=== PATIENT | female | born 1990 ===

== ENCOUNTER 2017-09-23 13:48 | Emergency (ER) | payer SELFPAY ==
[2017-09-23 13:54] VITALS: BMI 23.0
[2017-09-23] MEDS ORDERED: Sodium Chloride 0.9% 1,000 ML IV STA ×2 (14:09→15:53)
--- NOTE | 2017-09-23 14:09 | ED PDOC ---
Arrival/HPI - General Chief Complaint: GI Problem Time Seen by Provider: 09/23/17 13:56 Historian: Patient - History of Present Illness Narrative History of Present Illness (Text): 09/23/17 14:05 27 y/o female, pmh including UTI, nkda, c/o nausea and vomiting started today. Pt. stated that she been having nausea on and off for long time which is chronic for her, started to vomit this morning with 3-4 episodes, no recent traveling, no abdominal or pelvic pain, no rash, no numbness or tingling, no change in vision, no numbness or tingling, no other medical or psychological complaints. Past Medical History - Provider Review Nursing Documentation Reviewed: Yes - Infectious Disease Hx of Infectious Diseases: None - Psychiatric Hx Substance Use: No - Surgical History Hx Section: Yes (x1) - Anesthesia Hx Anesthesia: Yes Hx Anesthesia Reactions: No Hx Malignant Hyperthermia: No - Suicidal Assessment Feels Threatened In Home Enviroment: No Family/Social History - Physician Review Nursing Documentation Reviewed: Yes Family/Social History: Unknown Family HX Smoking Status: Never Smoked Hx Alcohol Use: Yes Frequency of alcohol use: Socially Hx Substance Use: No Allergies/Home Meds Allergies/Adverse Reactions: Allergies No Known Allergies Allergy (Verified 12/28/14 19:32) Review of Systems - Review of Systems Constitutional: absent: Fatigue, Fevers Eyes: absent: Vision Changes ENT: absent: Hearing Changes Respiratory: absent: SOB, Cough Cardiovascular: absent: Chest Pain Gastrointestinal: absent: Abdominal Pain, Nausea, Vomiting Skin: absent: Rash, Pruritis Neurological: absent: Headache, Dizziness Psychiatric: absent: Anxiety, Depression, Suicidal Ideation Physical Exam Vital Signs Reviewed: Yes Vital Signs Temp Pulse Resp BP Pulse Ox 09/23/17 16:52 80 16 103/62 100 09/23/17 14:47 97.8 F 89 14 134/58 L 99 Temperature: Afebrile Blood Pressure: Normal Pulse: Regular Respiratory Rate: Normal Appearance: Positive for: Well-Appearing, Non-Toxic, Comfortable Pain Distress: None Mental Status: Positive for: Alert and Oriented X 3 - Systems Exam Head: Present: Atraumatic, Normocephalic Pupils: Present: PERRL Extroacular Muscles: Present: EOMI Conjunctiva: Present: Normal Mouth: Present: Moist Mucous Membranes Neck: Present: Normal Range of Motion Respiratory/Chest: Present: Clear to Auscultation, Good Air Exchange. No: Respiratory Distress, Accessory Muscle Use Cardiovascular: Present: Regular Rate and Rhythm, Normal S1, S2. No: Murmurs Abdomen: Present: Normal Bowel Sounds, Other (negative gallardo). No: Tenderness , Distention, Peritoneal Signs, Rebound, Guarding Back: Present: Normal Inspection. No: CVA Tenderness, Midline Tenderness, Paraspinal Tenderness, Pain with Leg Raise, Decubitus Ulcer Upper Extremity: Present: Normal Inspection. No: Cyanosis, Edema Lower Extremity: Present: Normal Inspection. No: Edema Neurological: Present: GCS=15, CN II-XII Intact, Speech Normal, Motor Func Grossly Intact, Gait Normal, Memory Normal Skin: Present: Warm, Dry, Normal Color. No: Rashes Psychiatric: Present: Alert, Oriented x 3, Normal Insight, Normal Concentration Medical Decision Making ED Course and Treatment: 09/23/17 14:14 -labs/lipase -IVF/pepcid/reglan -observe and reassess 09/23/17 18:14 -Beta hcg is negative -Labs are non-significant except wbc 15.8 from 18 (afebrile), Pt. received 2L of IVF. -UA show +wbc noted, will treat with IV rocephin. -CT abdomen and pelvis show Slight heterogeneous enhancement of the kidneys. Correlate clinically for pyelonephritis. Prominent mesenteric lymph nodes may represent mesenteric adenitis in appropriate clinical setting. No CT evidence of cholecystitis pancreatitis or appendicitis. -Pt. is drinking and eating, no nausea or vomiting, no pain. -Case discussed with Dr. Daniels with labs/radiology/treatments explained and he suggest outpatient oral antibiotic -Pt. has no cva tenderness, will give keflex and follow up on the urine culture. I advised the patient to repeat the CBC with the pmd in 3 days and patient verbally expressed understanding. -Discharge home with keflex, pepcid, zofran, stay hyrated, bed rest, follow up with your own pmd and urologist/GI within 2 days, return to the ER for any new or worsening signs or symptoms. - Lab Interpretations Lab Results: 09/23/17 17:11 09/23/17 14:10 Lab Results 09/23/17 17:30: Urine Opiates Screen Negative, Urine Methadone Screen Negative, Ur Barbiturates Screen Negative, Ur Phencyclidine Scrn Negative, Ur Amphetamines Screen Negative, U Benzodiazepines Scrn Negative, U Oth Cocaine Metabols Negative, U Cannabinoids Screen Negative 09/23/17 17:30: Urine Color Yellow, Urine Appearance Sl cloudy, Urine pH 6.5, Ur Specific [place] 1.025, Urine Protein 30 H, Urine Glucose (UA) Negative, Urine Ketones Trace H, Urine Blood Negative, Urine Nitrate Negative, Urine Bilirubin Negative, Urine Urobilinogen 0.2, Ur Leukocyte Esterase Negative, Urine RBC Negative, Urine WBC 5 - 10, Ur Epithelial Cells Many, Urine Bacteria Many 09/23/17 17:11: WBC 15.8 H, RBC 4.35, Hgb 12.1, Hct 36.6, MCV 84.1, MCH 27.8, MCHC 33.1, RDW 13.3, Plt Count 265, MPV 10.2, Gran % 90.1 H, Lymph % (Auto) 4.4 L, [place] % (Auto) 5.3, Eos % (Auto) 0.1 L, Baso % (Auto) 0.1, Gran # 14.21 H, Lymph # (Auto) 0.7 L, [place] # (Auto) 0.8 H, Eos # (Auto) 0.0, Baso # (Auto) 0.01 , Neutrophils % (Manual) 89 H, Band Neutrophils % 2, Lymphocytes % (Manual) 7 L , Atypical Lymphs % 1 H, Monocytes % (Manual) 1, Platelet Evaluation Normal 09/23/17 14:10: Influenza Typ A,B (EIA) Negative for flu a/b 09/23/17 14:10: WBC 18.0 H, RBC 4.96, Hgb 13.8, Hct 41.9, MCV 84.5, MCH 27.8, MCHC 32.9, RDW 13.5, Plt Count 312, MPV 10.5, Gran % 88.4 H, Lymph % (Auto) 5.5 L, [place] % (Auto) 5.7, Eos % (Auto) 0.2 L, Baso % (Auto) 0.2, Gran # 15.89 H, Lymph # (Auto) 1.0 L, [place] # (Auto) 1.0 H, Eos # (Auto) 0.0, Baso # (Auto) 0.03 09/23/17 14:10: Beta HCG, Quant < 2.39 09/23/17 14:10: Sodium 144, Potassium 4.2, Chloride 104, Carbon Dioxide 24, Anion Gap 20, BUN 13, Creatinine 0.7, Est GFR ( Amer) > 60, Est GFR (Non- Af Amer) > 60, Random Glucose 104, Calcium 9.9, Magnesium 1.8, Total Bilirubin 0.3, AST 37 H, ALT 32, Alkaline Phosphatase 85, Total Protein 8.6 H, Albumin 4.9 H, Globulin 3.7, Albumin/Globulin Ratio 1.3, Lipase 63 - RAD Interpretation Radiology Orders: 09/23/17 14:53 ABDOMEN & PELVIS [ABD & PELVIS IV CONTRAST ONLY] [CT] Stat LOWER THORAX: Unremarkable. LIVER: Unremarkable. No gross lesion or ductal dilatation. GALLBLADDER AND BILE DUCTS: Unremarkable. PANCREAS: Unremarkable. No gross lesion or ductal dilatation. SPLEEN: Unremarkable. ADRENALS: Unremarkable. No mass. KIDNEYS AND URETERS: Patchy enhancement of the kidneys noted. Correlate clinically for pyelonephritis or infectious process. No evidence of hydronephrosis or hydroureter. VASCULATURE: Unremarkable. No aortic aneurysm. BOWEL: Unremarkable. No obstruction. No gross mural thickening. APPENDIX: Normal appendix. PERITONEUM: Unremarkable. No free fluid. No free air. LYMPH NODES: Slightly prominent mesenteric lymph nodes noted. No evidence of retroperitoneal lymphadenopathy. BLADDER: The urinary bladder is not distended. REPRODUCTIVE: The uterus is slightly prominent in size. There is IUD in place. BONES: No acute fracture. OTHER FINDINGS: Midline diastases recti noted at the level of the umbilicus. IMPRESSION: Slight heterogeneous enhancement of the kidneys. Correlate clinically for pyelonephritis. Prominent mesenteric lymph nodes may represent mesenteric adenitis in appropriate clinical setting. No CT evidence of cholecystitis pancreatitis or appendicitis. Concrete Paver: Radiologist - Medication Orders Current Medication Orders: Ceftriaxone Sodium (Rocephin 1 Gram Ivpb) 1 gm in 100 mls @ 200 mls/hr IVPB STAT STA PRN Reason: Protocol Stop: 09/23/17 18:32 Discontinued Medications Famotidine (Pepcid) 20 mg IVP STAT STA Stop: 09/23/17 14:10 Last Admin: 09/23/17 16:10 Dose: 20 mg IVP Administration Document 09/23/17 16:10 OCS (Rec: 09/23/17 16:10 OCS [id number]) Charges for Administration # of IVP Administrations 1 Sodium Chloride (Sodium Chloride 0.9%) 1,000 mls @ 999 mls/hr IV .Q1H1M STA Stop: 09/23/17 15:09 Last Admin: 09/23/17 14:24 Dose: 999 mls/hr eMAR Start Stop Document 09/23/17 14:24 OCS (Rec: 09/23/17 14:25 OCS [id number]) Intravenous Solution Start Date 09/23/17 Start Time 14:25 End Date 09/23/17 End time 15:26 Total Infusion Time 61 Sodium Chloride (Sodium Chloride 0.9%) 1,000 mls @ 999 mls/hr IV .Q1H1M STA Stop: 09/23/17 16:53 Last Admin: 09/23/17 16:09 Dose: 999 mls/hr eMAR Start Stop Document 09/23/17 16:09 OCS (Rec: 09/23/17 16:10 OCS [id number]) Intravenous Solution Start Date 09/23/17 Start Time 16:09 End Date 09/23/17 End time 17:10 Total Infusion Time 61 Metoclopramide HCl (Reglan) 10 mg IVP STAT STA Stop: 09/23/17 14:10 Last Admin: 09/23/17 16:10 Dose: 10 mg IVP Administration Document 09/23/17 16:10 OCS (Rec: 09/23/17 16:10 OCS [id number]) Charges for Administration # of IVP Administrations 1 - PA / DAMAGE PREVENTION COORDINATOR / Resident Statement / has reviewed & agrees with the documentation as recorded. Disposition/Present on Arrival - Present on Arrival Any Indicators Present on Arrival: No History of DVT/PE: No History of Uncontrolled Diabetes: No Urinary Catheter: No History of Decub. Ulcer: No History Surgical Site Infection Following: None - Disposition Have Diagnosis and Disposition been Completed?: Yes Diagnosis: Urinary tract infection, Nausea and vomiting Disposition: HOME/ ROUTINE Disposition Time: 14:14 Patient Plan: Discharge Patient Problems: Current Active Problems Problem Status Onset Nausea and vomiting Acute Urinary tract infection Acute Condition: IMPROVED Discharge Instructions (ExitCare): Urinary Tract Infections in Adults Additional Instructions: -Discharge home with keflex, pepcid, zofran, stay hyrated, bed rest, follow up with your own pmd and urologist/GI within 2 days, return to the ER for any new or worsening signs or symptoms. Prescriptions: Cephalexin [cephalexin] 500 mg PO QID #28 cap Famotidine [Pepcid] 20 mg PO BID #28 tab Ondansetron [Zofran] 4 mg PO Q8H PRN #21 tab PRN Reason: Other Referrals: PCP,NO [Primary Care Provider] - Follow up with primary Griffin Magallon MD [Staff Provider] - Follow up with primary Whitney Strickland MD [Medical Doctor] - [place] up with primary [facility] [place] - Follow up with primary Forms: WORK NOTE
[2017-09-23 14:43] LABS: BASO # 0.03 K/mm3 (0.0-2.0); BASO % 0.2 % (0.0-3.0); EOS % 0.2 % (1.5-5.0); GRAN # 15.89 (1.4-6.5); GRAN % 88.4 % (50.0-68.0); HEMOGLOBIN 13.8 g/dL (12.0-16.0); LYMPH % 5.5 % (22.0-35.0); MEAN CELL VOLUME 84.5 fl (80.0-105.0); MEAN CORPUSCULAR HEMOGLOBIN 27.8 pg (25.0-35.0); MEAN CORPUSCULAR HGB CONC 32.9 g/dl (31.0-37.0); MEAN PLATELET VOLUME 10.5 fl (7.0-11.0); MONO % 5.7 % (1.0-6.0); RBC 4.96 10^6/uL (3.5-6.1); RED CELL DISTRIBUTION WIDTH 13.5 % (11.5-14.5)
[2017-09-23 14:52] LABS: ALB/GLOB RATIO 1.3 (1.1-1.8); ALBUMIN 4.9 g/dL (3.0-4.8); ALT/SGPT 32 U/L (7-56); AST/SGOT 37 U/L (14-36); BLOOD UREA NITROGEN 13 mg/dL (7-21); CALCIUM 9.9 mg/dL (8.4-10.5); GFR AFRICAN-AMERICAN > 60; GFR NON-AFRICAN AMERICAN > 60; LIPASE 63 U/L (23-300); MAGNESIUM 1.8 mg/dL (1.7-2.2)
[2017-09-23 16:55] VITALS: O2SAT 100
[2017-09-23] MEDS ORDERED: Iohexol 350 MG/100 ML VIAL ONE (17:06)
[2017-09-23 17:18] LABS: BASO # 0.01 K/mm3 (0.0-2.0); BASO % 0.1 % (0.0-3.0); EOS % 0.1 % (1.5-5.0); GRAN # 14.21 (1.4-6.5); GRAN % 90.1 % (50.0-68.0); HEMOGLOBIN 12.1 g/dL (12.0-16.0); LYMPH # 0.7 (1.2-3.4); LYMPH % 4.4 % (22.0-35.0); MEAN CELL VOLUME 84.1 fl (80.0-105.0); MEAN CORPUSCULAR HEMOGLOBIN 27.8 pg (25.0-35.0); MEAN CORPUSCULAR HGB CONC 33.1 g/dl (31.0-37.0); MEAN PLATELET VOLUME 10.2 fl (7.0-11.0); MONO # 0.8 (0.1-0.6); MONO % 5.3 % (1.0-6.0); PLATELET COUNT 265 10^3/uL (120.0-450.0); RBC 4.35 10^6/uL (3.5-6.1); RED CELL DISTRIBUTION WIDTH 13.3 % (11.5-14.5); WHITE BLOOD COUNT 15.8 10^3/ul (4.5-11.0)
[2017-09-23 17:49] LABS: PH,URINE 6.5 (4.7-8.0); URINE BILIRUBIN NEGATIVE (NEGATIVE); URINE BLOOD NEGATIVE (NEGATIVE); URINE GLUCOSE (UA) NEGATIVE (NEGATIVE); URINE LEUKOCYTE ESTERASE NEGATIVE Leu/uL (NEGATIVE); URINE NITRATE NEGATIVE (NEGATIVE); URINE PROTEIN 30 mg/dL (<30 mg/dL); URINE UROBILINOGEN 0.2 E.U./dL (<1 E.U./dL)
[2017-09-23 17:58] LABS: URINE APPEARANCE SL CLOUDY (CLEAR); URINE COLOR YELLOW (YELLOW)
[2017-09-23 17:59] LABS: ATYPICAL LYMPHOCYTE 1 % (0.0-0.0); BAND 2 % (0-2); LYMPHOCYTE 7 % (22.0-35.0); MONOCYTE 1 % (1.0-6.0); NEUTROPHIL 89 % (50.0-70.0); PLATELET ESTIMATE NORMAL (NORMAL)
[2017-09-23 18:01] LABS: URINE BACTERIA MANY (NEG); URINE EPITHELIAL CELLS MANY /hpf (0-5); URINE RBC NEGATIVE /hpf (0-2)
[2017-09-23] MEDS ORDERED: cefTRIAXone 1 gm 1 GM/100 ML BAG IVPB STA (18:03)
--- NOTE | 2017-09-23 18:05 | CT ---
PROCEDURE: CT Abdomen and Pelvis with contrast HISTORY: vomiting, leukocytosis COMPARISON: None. TECHNIQUE: Contrast dose: She 100 mL Omnipaque 350. Axial and reformatted coronal and sagittal CT images of the abdomen and pelvis were obtained after IV contrast administration. Radiation dose: Total exam DLP = 273.46 mGy-cm. This CT exam was performed using one or more of the following dose reduction techniques: Automated exposure control, adjustment of the mA and/or kV according to patient size, and/or use of iterative reconstruction technique. FINDINGS: LOWER THORAX: Unremarkable. LIVER: Unremarkable. No gross lesion or ductal dilatation. GALLBLADDER AND BILE DUCTS: Unremarkable. PANCREAS: Unremarkable. No gross lesion or ductal dilatation. SPLEEN: Unremarkable. ADRENALS: Unremarkable. No mass. KIDNEYS AND URETERS: Patchy enhancement of the kidneys noted. Correlate clinically for pyelonephritis or infectious process. No evidence of hydronephrosis or hydroureter. VASCULATURE: Unremarkable. No aortic aneurysm. BOWEL: Unremarkable. No obstruction. No gross mural thickening. APPENDIX: Normal appendix. PERITONEUM: Unremarkable. No free fluid. No free air. LYMPH NODES: Slightly prominent mesenteric lymph nodes noted. No evidence of retroperitoneal lymphadenopathy. BLADDER: The urinary bladder is not distended. REPRODUCTIVE: The uterus is slightly prominent in size. There is IUD in place. BONES: No acute fracture. OTHER FINDINGS: Midline diastases recti noted at the level of the umbilicus. IMPRESSION: Slight heterogeneous enhancement of the kidneys. Correlate clinically for pyelonephritis. Prominent mesenteric lymph nodes may represent mesenteric adenitis in appropriate clinical setting. No CT evidence of cholecystitis pancreatitis or appendicitis.
[2017-09-23 18:16] LABS: BARBITURATES, UR NEGATIVE (NEGATIVE); BENZODIAZEPINES, UR NEGATIVE (NEGATIVE); OPIATES, UR NEGATIVE (NEGATIVE); PHENCYCLIDINE, UR NEGATIVE (NEGATIVE)
[2017-09-23 20:02] VITALS: BP 115/73; PULSE 90; RESP 17; TEMP 98.2
== END 2017-09-23 20:02 | disposition home or self-care (01) ==
LOC: ED 13:48
DX: N39.0 Urinary tract infection, site not specified (principal); R11.2 Nausea with vomiting, unspecified
CPT/HCPCS: 74177; 80053; 81001; 83690; 83735; 84702; 85025; 87086; 87804; 96361; 96374; 96375; 99284; G0480; J0696; J2405; J2765; J7040; Q9967